=== PATIENT | male | born 1950 | race Two or more races ===

== ENCOUNTER 2018-04-19 14:31 | Outpatient (CLI) | payer MEDICARE ==
[~2018-04-19 14:31] MED LIST: ASPI-1169 PO; CARV6.25 PO; INSU100V27 SQ; INSU100V7 SQ; LISI10TA5 PO
[2018-04-19 14:37] VITALS: BP 151/90
[2018-04-19 14:39] VITALS: BP 160/82
== END 2018-04-19 23:59 | disposition home or self-care (01) ==
LOC: MSC 14:31
PROVIDERS: ATTEND Internal Medicine
DX: E11.9 Type 2 diabetes mellitus without complications (principal); Z79.4 Long term (current) use of insulin; R20.0 Anesthesia of skin; I42.9 Cardiomyopathy, unspecified; I10 Essential (primary) hypertension; E78.5 Hyperlipidemia, unspecified

== ENCOUNTER 2018-06-21 14:28 | Outpatient (CLI) | payer MEDICARE ==
[2018-06-21 14:30] VITALS: BP 116/72
== END 2018-06-21 23:59 | disposition home or self-care (01) ==
LOC: MSC 14:28
PROVIDERS: ATTEND Nurse Practitioner Acute Care
DX: E11.9 Type 2 diabetes mellitus without complications (principal); Z79.4 Long term (current) use of insulin; I10 Essential (primary) hypertension; Z79.82 Long term (current) use of aspirin
CPT/HCPCS: 82962-TC